=== PATIENT | male | born 1980 | race Caucasian/White ===

== ENCOUNTER 2017-08-25 11:57 | Emergency (ER) | payer BC, OTHER ==
[~2017-08-25] VITALS: Wt 110.0 kg
[2017-08-25] MEDS ORDERED: HYDROCODONE/APAP (5/325) TAB PO ONE (14:00)
[2017-08-25] MEDS ORDERED: DIPHTH/TET/ACEL PERTUSS (ADULT) 0.5 ML VIAL IM* ONE (14:00)
--- NOTE | 2017-08-25 14:02 | ERD ---
ER Documentation Chief Complaint Chief Complaint LAC ON RIGHT GARCIA [facility], NO KO HPI This is a 37-year-old male who presents the emergency department today for a laceration on his garcia after falling off a 10 foot ladder. Patient states that he was at a family member's house trying to get a box down when he slipped and fell off a ladder. States he is not up-to-date on his tetanus. States he has pain on his garcia and some low back pain. Denies any fevers or chills. States he quit cigarette smoking 7 months ago. States he has not taken any medication for the pain. Denies hitting his head, loss of consciousness, headache dizziness or blurred vision. ROS All systems reviewed and are negative except as per history of present illness. Medications Home Meds Active Scripts Naproxen* (Naprosyn*) 500 Mg Tablet, 500 MG PO BID Y for PAIN AND/OR INFLAMMATION, #30 TAB Prov:MILENA GAO PA-C 08/25/17 Hydrocodone/Acetaminophen ([place] 5-325 Tablet) 1 Each Tablet, 1 TAB PO Q6H Y for PAIN, #10 TAB Prov:MILENA GAO PA-C 08/25/17 Cephalexin* (Keflex*) 500 Mg Capsule, 500 MG PO QID for 7 Days, CAP Prov:MILENA GAO PA-C 08/25/17 PMhx/Soc Medical and Surgical Hx: pt denies Medical Hx, pt denies Surgical Hx Hx Alcohol Use: Yes (occ) Hx Substance Use: No Hx Tobacco Use: No Smoking Status: Former smoker Physical Exam Vitals Vital Signs Date Time Temp Pulse Resp B/P Pulse Ox O2 Delivery O2 Flow Rate FiO2 08/25/17 15:57 83 16 176/106 99 Room Air 08/25/17 11:59 98.5 94 18 195/110 98 Physical Exam Const: sitting in wheelchair, NAD Head: Atraumatic Eyes: Normal Conjunctiva ENT: Normal External Ears, Nose and Mouth. Neck: Full range of motion..~ No meningismus. Resp: Clear to auscultation bilaterally Cardio: Regular rate and rhythm, no murmurs Abd: Soft, non tender, non distended. Normal bowel sounds Skin: Right tibia with evidence of 6 cm linear laceration. Right knee abrasion. MSk: Right tibia with evidence of 6 cm linear laceration over anterior tibia that is wide. Tenderness to palpation tibia. Nontender medial or lateral malleolus or foot. 2+. Distal neurovascularly intact. Lumbar spine with mild midline tenderness and right-sided paraspinal tenderness. Neur: Awake and alert Psych: Normal Mood and Affect Results 24 hrs Current Medications Medications (Trade) Dose Ordered Sig/Marizol Route PRN Reason Start Time Stop Time Status Last Admin Dose Admin Acetaminophen/ Hydrocodone Bitart ([place] (5/325)) 1 tab ONCE ONCE PO 08/25/17 14:00 08/25/17 14:01 DC 08/25/17 13:58 Diphtheria/ Tetanus/Acell Pertussis (Adacel) 0.5 ml ONCE ONCE IM* 08/25/17 14:00 08/25/17 14:01 DC 08/25/17 13:57 Lidocaine (Xylocaine 1% (Mdv) 20 ml) 20 ml ONCE ONCE SC 08/25/17 14:30 08/25/17 14:31 DC DIAGNOSTIC IMAGING REPORT Patient: MELITON BRITTON : 1980 Age: 37 Sex: M MR #: [id number] DOS: 08/25/17 0000 Ordering MD: MILENA GAO PA-C Location: [facility] Room/Bed: PROCEDURE: RIGHT knee x-ray CLINICAL INDICATION: Knee pain TECHNIQUE: AP, lateral and oblique views of the knee were obtained. COMPARISON: None FINDINGS: There is normal mineralization. No acute fracture or dislocation is seen. There is no joint effusion. There are no significant degenerative changes. There is no significant soft tissue swelling. RPTAT: AA IMPRESSION: Normal x-ray of the right knee. .Alex Molina MD, MD Date Time Electronically viewed and signed by .Alex Molina MD, MD on 08/25/2017 14: 37 .S/ CC: MILENA GAO PA-C DIAGNOSTIC IMAGING REPORT Patient: MELITON BRITTON : 1980 Age: 37 Sex: M MR #: [id number] DOS: 08/25/17 0000 Ordering MD: MILENA GAO PA-C Location: [facility] Room/Bed: PROCEDURE: Right tibia and fibula x-ray CLINICAL INDICATION: pain TECHNIQUE: AP, lateral views of the tibia and fibula were obtained. COMPARISON: None FINDINGS: There is normal mineralization. No acute fracture or dislocation is seen. There are no significant degenerative changes. There is no significant soft tissue swelling. RPTAT: AA IMPRESSION: Normal x-ray of the right tibia and fibula. .Alex Molina MD, MD Date Time Electronically viewed and signed by .Alex Molina MD, MD on 08/25/2017 14: 38 .S/ CC: MILENA GAO PA-C DIAGNOSTIC IMAGING REPORT Patient: MELITON BRITTON : 1980 Age: 37 Sex: M MR #: [id number] DOS: 08/25/17 0000 Ordering MD: MILENA GAO PA-C Location: [facility] Room/Bed: PROCEDURE: Right tibia and fibula x-ray CLINICAL INDICATION: pain TECHNIQUE: AP, lateral views of the tibia and fibula were obtained. COMPARISON: None FINDINGS: There is normal mineralization. No acute fracture or dislocation is seen. There are no significant degenerative changes. There is no significant soft tissue swelling. RPTAT: AA IMPRESSION: Normal x-ray of the right tibia and fibula. .Alex Molina MD, MD Date Time Electronically viewed and signed by .Alex Molina MD, MD on 08/25/2017 14: 38 .S/ CC: MILENA GAO PA-C Procedures/MDM This is a 37-year-old male who presents the emergency department today for laceration that he sustained on his right tibia after falling off a ladder. Patient indicated that he fell approximately 10 feet while trying to get boxes down. Given patient's injury did obtain images of the right tibia and lumbar spine and right knee. Patient was updated on his tetanus. Patient has a 6 cm linear laceration over the anterior aspect of his right tibia and therefore did explain to the patient that given the width and length I would need to give sutures. I explained the risks and benefits of the procedure and patient agreed to proceed. Given [facility] here in the emergency department. Lumbar spine images are unremarkable Right knee images are unremarkable Right Tibia fibula images are unremarkable Laceration Repair by me: Anesthesia: 1% lidocaine locally 10 cc Location: right tibia Tendon/Joint/Nerves: No injury Foreign body: None detected after copious irrigation and exploration Technique: 8 Simple Interrupted Sutures and 1 vertical mattress suture using 3-0 Prolene Complexity: No subcutaneous sutures/mucosal repair/ edge excision Post Closure Length: 6 cm Patient's bleeding was easily controlled in the department and there is no indication of anemia. No evidence of compartment syndrome, neurologic injury, vascular injury, open joint, tendon laceration, or foreign body. Patient is appropriate for outpatient follow up. At this time is consistent with laceration and low back pain secondary to fall from ladder. 48 hour wound check. Scar minimization instructions given. Patient will be given a prescription for Keflex, [facility]. He was instructed return in 48 hours for wound check and again in 7-10 days for suture removal. Patient was offered crutches to help ambulate. Patient indicated he stopped smoking 7 months ago however his blood pressure was significantly elevated at 195/110. This was rechecked and his blood pressure had decreased to 176/106. Patient denies any headache, dizziness or blurred vision. Patient was instructed to follow-up with his primary care doctor about his high blood pressure. Low suspicion for hypertensive emergency. I do not feel the patient requires further evaluation or workup. At this time the patient is stable for discharge and outpatient management. Patient should follow up with their PCP in the next 1-2 days. They may return to the emergency department sooner for any persistent or worsening of symptoms. Patient understood and agreed with the plan. Departure Diagnosis: Primary Impression: Laceration Additional Impression: Fall Encounter type: initial encounter Qualified Code: W19.XXXA - Fall, initial encounter Condition: MILENA Powers PA-C Aug 25, 2017 14:02
[2017-08-25] MEDS ORDERED: LIDOCAINE 1% (MDV) 20 ML INJ SC ONE (14:30)
--- NOTE | 2017-08-25 14:38 | RADRPT ---
PROCEDURE: RIGHT knee x-ray CLINICAL INDICATION: Knee pain TECHNIQUE: AP, lateral and oblique views of the knee were obtained. COMPARISON: None FINDINGS: There is normal mineralization. No acute fracture or dislocation is seen. There is no joint effusion. There are no significant degenerative changes. There is no significant soft tissue swelling. RPTAT: AA IMPRESSION: Normal x-ray of the right knee. .Alex Molina MD, MD Date Time Electronically viewed and signed by .Alex Molina MD, on 08/25/2017 14:37 .S/
--- NOTE | 2017-08-25 14:39 | RADRPT ---
PROCEDURE: Right tibia and fibula x-ray CLINICAL INDICATION: pain TECHNIQUE: AP, lateral views of the tibia and fibula were obtained. COMPARISON: None FINDINGS: There is normal mineralization. No acute fracture or dislocation is seen. There are no significant degenerative changes. There is no significant soft tissue swelling. RPTAT: AA IMPRESSION: Normal x-ray of the right tibia and fibula. .Alex Molina MD, MD Date Time Electronically viewed and signed by .Alex Molina MD, on 08/25/2017 14:38 .S/
--- NOTE | 2017-08-25 14:40 | RADRPT ---
PROCEDURE: XR Lumbar Spine. CLINICAL INDICATION: back pain TECHNIQUE: AP, lateral and cone-down lateral view of the lumbar spine were obtained. COMPARISON: No prior studies are available for comparison. FINDINGS: There is normal vertebral mineralization and alignment. No fracture or subluxation is seen. The disc spaces are normal in appearance. The posterior elements are unremarkable. The soft tissues appear normal. RPTAT: AA IMPRESSION: Unremarkable lumbar spine. .Alex Molina MD, MD Date Time Electronically viewed and signed by .Alex Molina MD, on 08/25/2017 14:39 .S/
[2017-08-25 15:57] VITALS: BP 176/106; PULSE 83; RESP 16
[2017-08-25] MEDS ORDERED: HYDR-906 PO (15:57)
[2017-08-25] MEDS ORDERED: NAPR-260 PO (15:57)
[2017-08-25] MEDS ORDERED: CEPH-443 PO (15:57)
== END 2017-08-25 16:07 | disposition home or self-care (01) ==
LOC: FTE 11:57
DX: S81.811A Laceration without foreign body, right lower leg, initial encounter (principal); W11.XXXA Fall on and from ladder, initial encounter; Y92.9 Unspecified place or not applicable; Z23 Encounter for immunization; Z87.891 Personal history of nicotine dependence
CPT/HCPCS: 12002; 72100; 73562; 73590; 90471; 90715; Z7502; Z7610

== ENCOUNTER 2017-08-27 10:43 | Emergency (ER) | payer BC ==
[~2017-08-27] VITALS: Wt 115.9 kg
[~2017-08-27 10:43] MED LIST: CEPH-443 PO; HYDR-906 PO; NAPR-260 PO
--- NOTE | 2017-08-27 12:46 | ERD ---
ER Documentation Chief Complaint Chief Complaint recheck HPI 37-year-old male comes in with a laceration from a fall from ladder, was repaired 2 days ago. The patient was seen here, he states he had slipped and fallen approximately 10 feet and is complaining of lower extremity pain. He had about 9 sutures placed, and he has been doing daily wound cleaning, with Neosporin medication dressing changes. X-rays of the tibia and fibula as well as the knee were negative for acute fracture. He states he has minimal pain, no drainage, no redness. ROS All systems reviewed and are negative except as per history of present illness. Medications Home Meds Active Scripts Naproxen* (Naprosyn*) 500 Mg Tablet, 500 MG PO BID Y for PAIN AND/OR INFLAMMATION, #30 TAB Prov:MILENA GAOC 08/25/17 Hydrocodone/Acetaminophen ([place] 5-325 Tablet) 1 Each Tablet, 1 TAB PO Q6H Y for PAIN, #10 TAB Prov:MILENA GAOC 08/25/17 Cephalexin* (Keflex*) 500 Mg Capsule, 500 MG PO QID for 7 Days, CAP Prov:MILENA GAOC 08/25/17 PMhx/Soc Hx Alcohol Use: Yes (occ) Hx Substance Use: No Hx Tobacco Use: No Physical Exam Vitals Vital Signs Date Time Temp Pulse Resp B/P Pulse Ox O2 Delivery O2 Flow Rate FiO2 08/27/17 11:16 98.0 78 20 163/80 98 Physical Exam General: Well-developed, well-nourished. The patient appears in no acute distress. HEENT: Head is normocephalic, atraumatic. No scleral icterus. Neck: Supple. Nontender. Lungs: Clear to auscultation. Normal air movement. Heart: Regular rate and rhythm. S1 and S2 are normal. No murmurs, gallops, or rubs. Abdomen: Nondistended. Extremities: Abrasion present over the proximal anterior leg and the right lower extremity, there is a 6 cm laceration that is intact, no deep drainage. There are 8 simple sutures intact, one vertical mattress sutures intact, wound is clean dry and intact. Neurologic: Alert and oriented 3. No focal deficits. Normal speech and gait. Skin: Normal turgor. No rash or lesions. Procedures/MDM Wound shows no evidence of infection, foreign body, neurologic injury, vascular injury, open joint or tendon laceration. Patient appropriate for outpatient follow up. Departure Diagnosis: Primary Impression: Follow-up examination for injury Condition: Good Patient Instructions: Wound Check, Lac F/U (No Infection) Additional Instructions: suture removal in approximately 7 days GABBY CARTER PA-C Aug 27, 2017 12:46
== END 2017-08-27 13:33 | disposition home or self-care (01) ==
LOC: FTE 10:43
DX: S81.821D Laceration with foreign body, right lower leg, subsequent encounter (principal); W11.XXXD Fall on and from ladder, subsequent encounter
CPT/HCPCS: 99284

== ENCOUNTER 2017-09-04 12:34 | Emergency (ER) | payer BC ==
[~2017-09-04] VITALS: Ht 182.9 cm; Wt 118.4 kg
[2017-09-04 12:48] VITALS: Ht 182.9 cm; Wt 118.4 kg
--- NOTE | 2017-09-04 14:16 | ERD ---
ER Documentation Chief Complaint Chief Complaint need right garcia suture removal HPI This is a 37-year-old male who presents to the emergency department today for suture removal of sutures he had placed approximately 10 days ago. Patient states he took all his antibiotics. Denies any fevers or chills. States he has been using Neosporin on it. ROS All systems reviewed and are negative except as per history of present illness. Medications Home Meds Active Scripts Naproxen* (Naprosyn*) 500 Mg Tablet, 500 MG PO BID Y for PAIN AND/OR INFLAMMATION, #30 TAB Prov:MILENA GAOC 08/25/17 Hydrocodone/Acetaminophen ([place] 5-325 Tablet) 1 Each Tablet, 1 TAB PO Q6H Y for PAIN, #10 TAB Prov:MILENA GAO PA-C 08/25/17 Cephalexin* (Keflex*) 500 Mg Capsule, 500 MG PO QID for 7 Days, CAP Prov:MILENA GAO PA-C 08/25/17 PMhx/Soc Medical and Surgical Hx: pt denies Medical Hx, pt denies Surgical Hx Hx Alcohol Use: Yes (occ) Hx Substance Use: No Hx Tobacco Use: No Smoking Status: Former smoker Physical Exam Vitals Vital Signs Date Time Temp Pulse Resp B/P Pulse Ox O2 Delivery O2 Flow Rate FiO2 09/04/17 12:48 98.0 91 20 163/103 97 Physical Exam Const: NAD Head: Atraumatic Eyes: Normal Conjunctiva ENT: Normal External Ears, Nose and Mouth. Neck: Full range of motion..~ No meningismus. Resp: Clear to auscultation bilaterally Cardio: Regular rate and rhythm, no murmurs Abd: Soft, non tender, non distended. Normal bowel sounds Skin: No petechiae or rashes MSK: Right tibia with evidence of sutures placed. While the wound is well- healed and well approximated. Mild erythema. No purulent drainage. Neur: Awake and alert Psych: Normal Mood and Affect Procedures/MDM This a 37-year-old male presents the emergency department today for suture removal sutures he had placed 10 days ago. I did see this patient upon his initial injury after he fell off a ladder. Patient was updated on his tetanus at that time and had sutures placed. Patient did return in follow-up for wound check. Today I did remove all of patient's sutures the patient tolerated the procedure well there were no complications. The wound was redressed here in the emergency department. Patient indicated he had been using Neosporin on and have explained to him that I would like him to try to dry a little bit more. Patient had some mild erythema however it is healing well and is well approximated. Do not feel the patient requires further antibiotics at this time. He is afebrile and otherwise well-appearing. Patient's blood pressure continues to be elevated. I did discuss with the patient again about his elevated blood pressure. Patient indicated that he did make an appoint with a primary care doctor for further evaluation and management. At this time he has no complaints of low suspicion for hypertensive emergency. At this time the patient is stable for discharge and outpatient management. Patient should follow up with their PCP in the next 1-2 days. They may return to the emergency department sooner for any persistent or worsening of symptoms. Patient understood and agreed with the plan. Departure Diagnosis: Primary Impression: Encounter for removal of sutures Condition: Fair Patient Instructions: Suture Removal, No Complication Referrals: your PCP Additional Instructions: Call your primary care doctor TOMORROW for an appointment during the next 1-2 days.See the doctor sooner or return here if your condition worsens before your appointment time. Keep wound clean and dry. Return for any worsening of symptoms, redness or purulent drainage MILENA GAO PA-C Sep 04, 2017 14:16
[2017-09-04 14:20] VITALS: BP 150/93; PULSE 76
== END 2017-09-04 14:53 | disposition home or self-care (01) ==
LOC: FTE 12:34
DX: Z48.02 Encounter for removal of sutures (principal); Z87.891 Personal history of nicotine dependence
CPT/HCPCS: 99281